=== PATIENT | female | born 1975 | race African-American/Black ===

== ENCOUNTER 2018-02-22 20:55 | Emergency (ER) | payer BC ==
--- NOTE | 2018-02-22 23:02 | EDPHYS ---
Physician Documentation [facility] Name: Raulito Hernández Age: 42 yrs Sex: Female : 1975 Arrival Date: 02/22/2018 Time: 21:00 Bed Treatment Private MD: None, None ED Physician Poncho Harrington HPI: 02/22 22:59 This 42 yrs old Black Female presents to ER via Ambulatory with complaints of Dog Bite. snw 22:59 The patient was bitten on the left leg, by a dog, for an unknown reason, at home. snw Onset: The symptoms/episode began/occurred suddenly, just prior to arrival. Animal information: The animal was reported to appear healthy. is unknown, The animal is known and can be quarantined, Animal control has been notified. Secondary to the bite the patient reports 2. Associated signs and symptoms: The patient has no apparent associated signs or symptoms. Severity of symptoms: At their worst the symptoms were very mild. The patient has not experienced similar symptoms in the past. The patient has not recently seen a physician. pt states it is her Neighbor's dog and police were contacted. 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 - Social history:: Smoking status: Patient/guardian denies using tobacco. - Ebola Screening: : Patient negative for fever greater than or equal to 101.5 degrees Fahrenheit, and additional compatible Ebola Virus Disease symptoms Patient denies exposure to infectious person Patient denies travel to an Ebola-affected area in the 21 days before illness onset. ROS: 22:59 Constitutional: Negative for fever, chills, and weight loss, Eyes: Negative for injury, snw pain, redness, and discharge, ENT: Negative for injury, pain, and discharge, Neck: Negative for injury, pain, and swelling, Cardiovascular: Negative for chest pain, palpitations, and edema, Respiratory: Negative for shortness of breath, cough, wheezing, and pleuritic chest pain, Abdomen/GI: Negative for abdominal pain, nausea, vomiting, diarrhea, and constipation, Back: Negative for injury and pain, : Negative for injury, bleeding, discharge, and swelling, MS/Extremity: Negative for injury and deformity, Neuro: Negative for headache, weakness, numbness, tingling, and seizure, Psych: Negative for depression, anxiety, suicide ideation, homicidal ideation, and hallucinations. 22:59 Skin: Positive for dogbite. Exam: 22:58 Constitutional: This is a well developed, well nourished patient who is awake, alert, snw and in no acute distress. Head/Face: Normocephalic, atraumatic. Eyes: Pupils equal round and reactive to light, extra-ocular motions intact. Lids and lashes normal. Conjunctiva and sclera are non-icteric and not injected. Cornea within normal limits. Periorbital areas with no swelling, redness, or edema. ENT: Nares patent. No nasal discharge, no septal abnormalities noted. Tympanic membranes are normal and external auditory canals are clear. Oropharynx with no redness, swelling, or masses, exudates, or evidence of obstruction, uvula midline. Mucous membranes moist. Neck: Trachea midline, no thyromegaly or masses palpated, and no cervical lymphadenopathy. Supple, full range of motion without nuchal rigidity, or vertebral point tenderness. No Meningismus. Chest/axilla: Normal chest wall appearance and motion. Nontender with no deformity. No lesions are appreciated. Cardiovascular: Regular rate and rhythm with a normal S1 and S2. No gallops, murmurs, or rubs. Normal PMI, no JVD. No pulse deficits. Respiratory: Lungs have equal breath sounds bilaterally, clear to auscultation and percussion. No rales, rhonchi or wheezes noted. No increased work of breathing, no retractions or nasal flaring. Abdomen/GI: Soft, non-tender, with normal bowel sounds. No distension or tympany. No guarding or rebound. No evidence of tenderness throughout. Back: No spinal tenderness. No costovertebral tenderness. Full range of motion. MS/ Extremity: Pulses equal, no cyanosis. Neurovascular intact. Full, normal range of motion. Neuro: Awake and alert, GCS 15, oriented to person, place, time, and situation. Cranial nerves II-XII grossly intact. Motor strength 5/5 in all extremities. Sensory grossly intact. Cerebellar exam normal. Normal gait. 22:58 Skin: Appearance: normal except for affected area, injury, bite(s), superficial, of the left hamstring and posterior aspect of left knee, pt had on jeans and bite barely broke skin. Vital Signs: 21:30 BP 121 / 88; Pulse 89; Resp 20; Temp 98.3(O); Pulse Ox 100% on R/A; Weight 95.71 kg fc (R); Height 5 ft. 6 in. (167.64 cm) (R); Pain 8/10; 23:43 BP 132 / 67; Pulse 78; Resp 16 S; Temp 97.9(O); Pulse Ox 98% on R/A; bb 21:30 Body Mass Index 34.06 (95.71 kg, 167.64 cm) fc MDM: 22:43 Patient medically screened. snw 23:03 Data reviewed: vital signs, nurses notes. Data interpreted: Pulse oximetry: on room air snw is 100 %. Interpretation: normal. Counseling: I had a detailed discussion with the patient and/or guardian regarding: the historical points, exam findings, and any diagnostic results supporting the discharge/admit diagnosis, the presence of at least one elevated blood pressure reading (>120/80) during this emergency department visit, the need for outpatient follow up, to return to the emergency department if symptoms worsen or persist or if there are any questions or concerns that arise at home. 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 Exp: bb 04/02/2020. Lot #: [id number]. } Route: IM; Site: left deltoid; 23:41 Follow up: Response: No adverse reaction bb 23:21 Drug: UltRAM 50 mg Route: PO; bb 23:42 Follow up: Response: Pain is decreased bb Disposition: 02/23 07:19 Co-signature as Attending Physician, Poncho Harrington MD I agree with the assessment and coby plan of care. Disposition: 02/22/18 23:02 Discharged to Home. Impression: Bitten by dog. - Condition is Stable. - Discharge Instructions: VIS, Tetanus, Diphtheria (Td) - CDC, Animal Bite. - Prescriptions for Augmentin 875- 125 mg Oral Tablet - take 1 tablet by ORAL route every 12 hours for 10 days; 20 tablet. Diclofenac Sodium 75 mg Oral Tablet Sustained Release - take 1 tablet by ORAL route 2 times per day; 30 tablet. - Medication Reconciliation Form, Thank You Letter, Antibiotic Education, Prescription Opioid Use form. - Follow up: Private Physician; When: 2 - 3 days; Reason: Recheck today's complaints, Continuance of care, Re-evaluation by your physician. Follow up: Emergency Department; When: As needed; Reason: Worsening of condition. Signatures: Poncho Harrington MD MD cha Therrien, Shelly, SCOUT-C PLASTIC SURGERY NURSE-Csnw Lia Brar RN RN Kendy Meyers RN RN bb Corrections: (The following items were deleted from the chart) 02/22 23:44 23:02 02/22/2018 23:02 Discharged to Home. Impression: Bitten by dog. Condition is bb Stable. Forms are Medication Reconciliation Form, Thank You Letter, Antibiotic Education, Prescription Opioid Use. Follow up: Private Physician; When: 2 - 3 days; Reason: Recheck today's complaints, Continuance of care, Re-evaluation by your physician. Follow up: Emergency Department; When: As needed; Reason: Worsening of condition. snw
--- NOTE | 2018-02-22 23:02 | ER ---
Nurse's Notes [facility] Name: Raulito Hernández Age: 42 yrs Sex: Female : 1975 Arrival Date: 02/22/2018 Time: 21:00 Bed Treatment Private MD: None, None Diagnosis: Bitten by dog Presentation: 02/22 21:26 Presenting complaint: Patient states: that she was bitten by her neighbors dog on the back of the left thigh. Increasing pain. Transition of care: patient was not received from another setting of care. Onset of symptoms was February 22, 2018 at 18:45. Risk Assessment: Do you want to hurt yourself or someone else? Patient reports no desire to harm self or others. Initial Sepsis Screen: Does the patient meet any 2 criteria? No. Patient's initial sepsis screen is negative. Does the patient have a suspected source of infection? No. Patient's initial sepsis screen is negative. Care prior to arrival: None. 21:26 Method Of Arrival: Ambulatory 21:26 Acuity: TRUDI 4 22:52 Presenting complaint: Dog Bite in [place] . Triage Assessment: 21:29 Bite description: bite sustained to left hamstring is superficial, was sustained 2-4 hours ago. by a dog, animal information: vaccination(s) is unknown. General: Appears uncomfortable, Behavior is calm, cooperative, appropriate for age. Pain: Complains of pain in left hamstring Pain currently is 8 out of 10 on a pain scale. Quality of pain is described as aching, throbbing, Pain began 3 hours ago. Is continuous, Aggravated by increased activity, repositioning, weight bearing. EENT: No deficits noted. Neuro: Level of Consciousness is awake, alert, obeys commands, Oriented to person, place, time, situation. Cardiovascular: No deficits noted. Respiratory: No deficits noted. GI: No deficits noted. : No deficits noted. Derm: Skin is pink, warm \T\ dry. Reports dog bite to back of left thigh. Musculoskeletal: Circulation, motion, and sensation intact. Capillary refill < 3 seconds, Range of motion: intact in all extremities. 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 - Social history:: Smoking status: Patient/guardian denies using tobacco. - Ebola Screening: : Patient negative for fever greater than or equal to 101.5 degrees Fahrenheit, and additional compatible Ebola Virus Disease symptoms Patient denies exposure to infectious person Patient denies travel to an Ebola-affected area in the 21 days before illness onset. Screenin:16 Abuse screen: Denies threats or abuse. Nutritional screening: No deficits noted. bb Tuberculosis screening: No symptoms or risk factors identified. Fall Risk None identified. Assessment: 22:16 General: Appears in no apparent distress. obese, Behavior is calm, cooperative. Pain: bb Complains of pain in left leg. Neuro: Level of Consciousness is awake, alert, obeys commands, Oriented to person, place, time, situation. Cardiovascular: No deficits noted. Respiratory: Respiratory effort is even, unlabored. GI: No signs and/or symptoms were reported involving the gastrointestinal system. Derm: Skin is intact. 23:42 Reassessment: Patient and/or family updated on plan of care and expected duration. Pain bb level reassessed. Patient is alert, oriented x 3, equal unlabored respirations, skin warm/dry/pink. pt verbalized understanding of and agrees to plan of care discharge instructions given pt ambulated with steady gait to exit Patient states feeling better. Vital Signs: 21:30 BP 121 / 88; Pulse 89; Resp 20; Temp 98.3(O); Pulse Ox 100% on R/A; Weight 95.71 kg fc (R); Height 5 ft. 6 in. (167.64 cm) (R); Pain 8/10; 23:43 BP 132 / 67; Pulse 78; Resp 16 S; Temp 97.9(O); Pulse Ox 98% on R/A; bb 21:30 Body Mass Index 34.06 (95.71 kg, 167.64 cm) ED Course: 21:00 Patient arrived in ED. mr 21:00 None, None is Private Physician. mr 21:28 Triage completed. 21:30 Arm band placed on Patient placed in waiting room. fc 22:16 Kendy Santos, RN is Primary Nurse. bb 22:16 Patient has correct armband on for positive identification. Call light in reach. bb 22:42 Leidy Metzger FNP-C is [facility]. snw 22:42 Poncho Harrington MD is Attending Physician. snw 23:43 No provider procedures requiring assistance completed. Patient did not have IV access bb during this emergency room visit. 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 Exp: bb 04/02/2020. Lot #: [id number]. } Route: IM; Site: left deltoid; 23:41 Follow up: Response: No adverse reaction bb 23:21 Drug: UltRAM 50 mg Route: PO; bb 23:42 Follow up: Response: Pain is decreased bb Outcome: 23:02 Discharge ordered by MD. snw 23:43 Discharged to home ambulatory. bb 23:43 Condition: stable 23:43 Discharge instructions given to patient, Instructed on discharge instructions, follow up and referral plans. medication usage, Demonstrated understanding of instructions, follow-up care, medications, Prescriptions given X 2. 23:44 Patient left the ED. bb Signatures: Leidy Metzger FNP-C FNP-Jagdeep Rosalee DavisLia, RN RN Kendy Santos, RN RN bb
[2018-02-22] MEDS ORDERED: AMOX/K CLAV 875 MG TAB ONE (23:25)
[2018-02-22] MEDS ORDERED: TRAMADOL HCL 50 MG TAB ONE (23:25)
[2018-02-22] MEDS ORDERED: TETANUS & DIPHTHERIA TOX,ADULT 0.5 ML VIAL ONE (23:26)
[2018-02-22 23:59] VITALS: BP 132/67; TEMP 97.9; O2SAT 98
== END 2018-02-22 23:44 | disposition home or self-care (01) ==
LOC: ER 20:55
DX: S80.872A Other superficial bite, left lower leg, initial encounter (principal); W54.0XXA Bitten by dog, initial encounter; Y93.9 Activity, unspecified; Y92.009 Unspecified place in unspecified non-institutional (private) residence as the place of occurrence of the external cause; Z23 Encounter for immunization
CPT/HCPCS: 90714; 99283